=== PATIENT | male | born 1990 | race Two or more races ===

== ENCOUNTER 2020-08-08 08:00 | Emergency (ER) | payer BC ==
[2020-08-08] MEDS ORDERED: Famotidine 20 MG/2 ML SDV IVPUSH ONE (08:12)
[2020-08-08] MEDS ORDERED: EPINEPHrine 1 MG/ML SDV IM ONE (08:12)
[2020-08-08] MEDS ORDERED: methylPREDNISolone Sodium Succinate 125 MG/2 ML SDV IVPUSH ONE (08:12)
--- NOTE | 2020-08-08 08:19 | EDM.PDOC ---
ED HPI GENERAL MEDICAL PROBLEM - General Chief Complaint: Allergic Reaction Stated Complaint: ALLERGIC RX Time Seen by Provider: 08/08/20 08:10 - History of Present Illness INITIAL COMMENTS - FREE TEXT/NARRATIVE: 30-year-old male presents the emergency room with breathing difficulties and shortness of breath. This started around 730 this morning after eating at [facility] [employer]. Patient had a similar episode where a shot made him better. He ate raisin Bran at that time. Patient does not have a history of asthma. And otherwise enjoys pretty good health. At this time he thinks his tongue is swelling in his throat and lungs are feeling really tight. After I did put some orders in he did vomit x1 he is feeling little bit better meds have been started. The patient has some redness and itching all over. Chest Pain Score (Numeric/FACES): 8 - Related Data Allergies Allergy/AdvReac Type Severity Reaction Status Date / Time No Known Allergies Allergy Verified 08/08/20 08:32 Home Meds: Home Meds EPINEPHrine [Epipen] 0.3 mg IM ASDIRECTED PRN #1 pen 08/08/20 [Rx] Famotidine [Pepcid] 20 mg PO BID #14 tab 08/08/20 [Rx] predniSONE [Prednisone] 60 mg PO DAILY #12 tablet 08/08/20 [Rx] ED ROS ALLERGIC REACTION - Review of Systems Review Of Systems: See Below Constitutional: Reports: No Symptoms HEENT: Reports: Throat Swelling Respiratory: Reports: Other (His breathing feels tight) Cardiovascular: Denies: Chest Pain GI/Abdominal: Reports: Vomiting (Patient feels better after throwing up x1). Denies: Abdominal Pain, Nausea Neurological: Reports: No Symptoms Psychiatric: Reports: Anxiety ED EXAM GENERAL NO PERIP PULSE - Physical Exam Exam: See Below Exam Limited By: No Limitations General Appearance: Alert, Anxious, Mild Distress Eye Exam: Bilateral Eye: Normal Inspection Ears: Normal External Exam, Normal Canal, Hearing Grossly Normal, Normal TMs Nose: Normal Inspection, Normal Mucosa, No Blood Throat/Mouth: Other (Mucosal erythema possible early swelling) Head: Atraumatic, Normocephalic Respiratory/Chest: No Respiratory Distress. No: Decreased Breath Sounds, Stridor Cardiovascular: No Edema, No Murmur, Tachycardia (Rate in the 120s) GI/Abdominal: Normal Bowel Sounds, Soft, Non-Tender, No Organomegaly, No Distention, No Abnormal Bruit, No Mass Back Exam: Normal Inspection. No: CVA Tenderness (L), CVA Tenderness (R) Extremities: Normal Inspection. No: No Pedal Edema Neurological: Alert, Oriented, Normal Cognition #1 Interpretation EKG Date: 08/08/20 Rhythm: Other (Sinus tach) Rate (Beats/Min): 127 [place]: RAD-Right [place] Deviation P-Wave: Present QRS: Normal ST-T: Normal QT: Normal Comparison: NA - No Prior EKG EKG Interpretation Comments: Sinus tachycardia Course - Vital Signs Last Recorded V/S: Last Vital Signs Temp 36.6 C 08/08/20 12:15 Pulse 98 08/08/20 12:15 Resp 20 08/08/20 12:15 BP 122/92 H 08/08/20 12:15 Pulse Ox 97 08/08/20 12:15 - Orders/Labs/Meds Meds: Medications Discontinued Medications Generic Name Dose Route Start Last Admin Trade Name Juan José PRN Reason Stop Dose Admin Epinephrine HCl 0.5 mg 08/08/20 08:12 08/08/20 08:27 Epinephrine 1 Mg/Ml Sdv IM 08/08/20 08:13 0.5 mg ONETIME ONE Administration Famotidine 40 mg 08/08/20 08:12 08/08/20 08:25 Famotidine 20 Mg/2 Ml Sdv IVPUSH 08/08/20 08:13 40 mg ONETIME ONE Administration Methylprednisolone Sodium Succinate 125 mg 08/08/20 08:12 08/08/20 08:21 Methylprednisolone Sodium Succinate 125 Mg/2 Ml Sdv IVPUSH 08/08/20 08:13 125 mg ONETIME ONE Administration - Re-Assessments/Exams Free Text/Narrative Re-Assessment/Exam: 08/08/20 08:36 Meds given patient is doing much better at this time. 08/08/20 09:56 Patient is doing about the same he says he still has a little bit of tongue swelling it is much better than it was the itching is gone he does not say is breathing is back perfectly normal he still feels a little tightness throat but he is much better overall. We will continue to watch him at this time. 08/08/20 11:41 Patient is entirely back to normal at this point and would like to be disc harged. I will discharge him with an EpiPen short course of steroids and Pepcid with as needed Benadryl. Departure - Departure Time of Disposition: 11:42 Disposition: Home, Self-Care 01 Clinical Impression: Allergic reaction - Discharge Information Prescriptions: EPINEPHrine [Epipen] 0.3 mg IM ASDIRECTED PRN #1 pen PRN Reason: Shortness Of Breath Famotidine [Pepcid] 20 mg PO BID #14 tab predniSONE [Prednisone] 60 mg PO DAILY #12 tablet Instructions: Anaphylactic Reaction, Adult Referrals: PCP,None [Primary Care Provider] - Forms: ED Department Discharge Additional Instructions: Return to the emergency room with any questions or problems. Use the medication as directed. You will take the prednisone every morning until you run out. Take the Pepcid 20 mg twice daily for 7 days. Use Benadryl 25 mg 4 times a day if needed. These were sent electronically to the [place] [facility] in the [employer] [place] [employer] [facility]. I have also given you an EpiPen use this at the onset of severe symptoms of throat tightening breathing difficulties. Follow-up with your regular healthcare provider early this next week for recheck Sepsis Event Note (ED) - Focused Exam Vital Signs: Vital Signs Temp Pulse Resp BP Pulse Ox 08/08/20 12:15 36.6 C 98 20 122/92 H 97 08/08/20 10:41 36.7 C 98 20 115/88 96 08/08/20 08:00 37.1 C 144 H 30 H 128/94 H 98
== END 2020-08-08 12:20 | disposition home or self-care (01) ==
LOC: JD.ED 08:00
DX: T78.1XXA Other adverse food reactions, not elsewhere classified, initial encounter (principal)
CPT/HCPCS: 96372; 96374; 96375; 99284; J0171; J2930; J3490